=== PATIENT | female | born 1960 | race Caucasian/White ===

== ENCOUNTER → 2019-02-19 10:40 | Outpatient (BNVA) | payer BC, SELFPAY | PROVIDERS: Family Provider Nurse Practitioner; PCP Nurse Practitioner; Visit Provider Orthopaedic Surgery | DX: M17.12 Unilateral primary osteoarthritis, left knee (principal) | CPT/HCPCS: 73560; 73565 ==

== ENCOUNTER → 2019-03-27 09:53 | Outpatient (BNVA) | payer BC, SELFPAY | PROVIDERS: Family Provider Nurse Practitioner; PCP Nurse Practitioner; Visit Provider Nurse Practitioner | DX: M25.551 Pain in right hip (principal); M79.89 Other specified soft tissue disorders | CPT/HCPCS: 73502 ==

== ENCOUNTER 2019-05-07 10:37 | Outpatient (CLI) | payer BC, SELFPAY ==
--- NOTE | 2019-05-07 10:55 | MR_ITS ---
WS: [id number] MRI RIGHT HIP NONCONTRAST TECHNIQUE: Axial T1, axial T2 fat sat, coronal T1, coronal STIR, sagittal T2 fat sat, sagittal T1, an d sagittal T2 fat sat, of both hips. CLINICAL INFORMATION: Right hip pain x-ray recommendation COMPARISON: March 27, 2019 FINDINGS: Mild degenerative arthritis both hips with joint space narrowing. No acute fractures. Right femoral n dee is normal in appearance. Degenerative changes along the greater trochanter. No acute fractures. S mall amount of edema along the right greater trochanter can be seen with trochanteric bursitis. Normal bone marrow signal in the proximal femurs. No evidence of avascular necrosis. Normal acetabulu m. Normal pubic rami. No inguinal or pelvic lymphadenopathy. MR/MR hip RT wo con* [id number] IMPRESSION: 1. Mild degenerative arthritis right hip. No acute fractures. 2. Small amount of edema along the right greater trochanter can be seen with t rochanteric bursitis. No acute fractures. 3. Mild degenerative arthritis left hip. 4. Normal bone marrow signal in the visualized bony pelvis and sacrum.
== END 2019-05-07 10:38 | disposition home or self-care (01) ==
LOC: RADWPI 10:48
PROVIDERS: Family Provider Nurse Practitioner; PCP Nurse Practitioner; Visit Provider Nurse Practitioner
DX: M25.551 Pain in right hip (principal); M16.0 Bilateral primary osteoarthritis of hip
CPT/HCPCS: 73721

== ENCOUNTER → 2019-07-25 13:18 | Outpatient (BNVA) | payer BC, SELFPAY | PROVIDERS: Family Provider Nurse Practitioner; PCP Nurse Practitioner; Visit Provider Nurse Practitioner | DX: F41.9 Anxiety disorder, unspecified (principal); Z12.4 Encounter for screening for malignant neoplasm of cervix | CPT/HCPCS: 88175 ==

== ENCOUNTER 2019-08-20 06:00 | Outpatient (RCR) | payer BC, SELFPAY | END 2019-09-06 23:59 | disposition home or self-care (01) | LOC: SPT 06:00 | PROVIDERS: PCP Nurse Practitioner; Referring Provider Orthopaedic Surgery; Visit Provider Orthopaedic Surgery | DX: M17.12 Unilateral primary osteoarthritis, left knee (principal); M25.562 Pain in left knee; G89.29 Other chronic pain | CPT/HCPCS: 97110; 97116; 97163 ==

== ENCOUNTER 2019-08-21 21:02 | Emergency (ER) | payer BC, SELFPAY ==
[2019-08-21 21:12] VITALS: BP 135/78; PULSE 71; RESP 17; TEMP 36.9; O2SAT 98; BMI 37.3
--- NOTE | 2019-08-21 21:44 | XRR_ITS ---
PROCEDURE INFORMATION: Exam: XR Abdomen, 3 or More Views Exam date and time: 08/21/2019 10:14 PM Age: 58 years old Clinical indication: Prior surgery; Surgery date: 6+ months; Surgery type: Hysterectomy; Patient HX: C/O constipation. Had total knee replacement 08/12/19. C/O bilat lower quadrant abd pain. No bowel movement in 8 days. Nausea TECHNIQUE: Imaging protocol: XR of the abdomen. Views: 3 or more views. COMPARISON: No relevant prior studies available. FINDINGS: Gastrointestinal tract: bowel gas pattern is nonspecific. Air filled large bowel including distal rectal gas. Moderate amount stool throughout the large bowel. Intraperitoneal space: Normal. No free air. Organs: Question prominent liver. Bones/joints: Unremarkable for age. XR/XR acute abdomen series [id number] IMPRESSION: 1. Bowel gas pattern is nonspecific. Air filled large bowel including distal rectal gas. 2. Moderate amount stool throughout the large bowel. 3. Question prominent liver.
[2019-08-21 21:59] VITALS: BP 148/54; PULSE 63; RESP 14; O2SAT 96
--- NOTE | 2019-08-21 22:14 | ED_ITS ---
HPI - General Adult General: Chief complaint: General Medical Stated complaint: constipated Time Seen by Provider: 08/21/19 22:00 History of Present Illness: HPI narrative: Patient is a 58-year-old female comes to the ED with constipation. Patient recently had a left total knee replacement surgery performed last Monday. She states that she is having left and right lower quadrant abdominal pain and has not had a bowel movement in 8 days. patient is currently taking pain narcotic for post surgical pain. She did say yesterday she strained and was able to have a very small formed stool. Today she started developing some nausea but is not vomited. Denies any fever, chills, dysuria or hematuria or blood in the stool. Patient has been taking MiraLAX, stool softener and mag citrate with no successful bowel movement. She currently rates the abdominal pain an 8 out of 10. Associated symptoms: Reports nausea; Deny chest pain, dyspnea, headache(s), rash, palpitations or vomiting Review of Systems Const: Denies: fever(s), chills or fatigue Eyes: Denies: change in vision or eye discomfort ENMT: Denies: throat pain, odynophagia, nasal discharge or nasal congestion Card: Denies: chest pain, palpitations, edema, swelling of feet/ankles, dyspnea on exertion or orthopnea Resp: Denies: dyspnea, productive cough or non-productive cough GI: Reports: abdominal pain, nausea and constipation; Denies: vomiting, diarrhea or hematochezia : Denies: flank pain, dysuria or hematuria Musc: Denies: neck pain, back pain or extremity swelling Skin/Breast: Denies: rash or new lesions Neuro: Denies: headache(s), numbness in extremities or weakness in extremities PFSH ED PFSH: Medical History Anxiety Essential (primary) hypertension Surgical History History of hysterectomy with BSO History of umbilical hernia repair Family History Brother Cancer Lung Father Family history of premature coronary artery disease Mother Dementia Social History Smoking and tobacco status: never smoked Second hand smoke exposure: No Smoking risk assessment/counseling performed?: No Alcohol intake: never Desire information about alcohol rehabilitation?: No Counseling given: No Desire information about substance/drug rehabilitation?: No Counseling given: No Adopted: No Caregiver/support person: No Lives independently: Yes Household members: spouse Housing: House Marital status: service: No Current occupational status: employed Current occupation: house Previous occupational history: house cleaning Pets and animals: Yes Pets & animals: dog(s) History of recent travel: No Current gender identity: Female Physical Exam Const: COMMON NORMALS: no acute distress, patient oriented x3 and alert GENERAL APPEARANCE: cooperative; not comfortable (Patient appears uncomfortable due to abdominal pain.) HENMT: COMMON NORMALS: normocephalic HEAD & SCALP: normocephalic MOUTH: Normal oral and palatal mucosa present THROAT: posterior oropharynx normal and uvula midline Eye: COMMON NORMALS: Equal, round and reactive pupils present PUPIL: Yes Equal, round and reactive pupils present Neck/C-Spine: COMMON NORMALS: supple GENERAL: Yes normal visual inspection Resp: COMMON NORMALS: normal respiratory effort, No retractions, No use of accessory muscles and clear to auscultation bilaterally AUSCULTATION: clear to auscultation bilaterally Cardio: COMMON NORMALS: regular rate, regular rhythm, S1 normal heart sound present, S2 normal heart sound present, No gallops present (Cardio), No clicks present (Cardio), No murmurs present (Cardio) and Peripheral pulses 2+ throughout RATE: regular rate RHYTHM: regular rhythm HEART SOUNDS: S1 normal heart sound present and S2 normal heart sound present PERIPHERAL PULSES: Peripheral pulses 2+ throughout GI: COMMON NORMALS: Normal to inspection, nondistended, normoactive bowel sounds present, Soft to palpation and no masses PALPATION: Yes Soft to palpation and Yes Tenderness to palpation present (GI) (moderate tenderness) Details: LLQ and RLQ : COMMON NORMALS: Yes no CVA tenderness BLADDER/KIDNEY EXAM: Yes no CVA tenderness Back/Pelvis: COMMON NORMALS: no CVA tenderness Extremity: COMMON NORMALS: normal to inspection and no pedal edema NARRATIVE EXTREMITY EXAM: No signs of purulent drainage, erythema, warmth or tenderness around left knee surgical site. Neuro: COMMON NORMALS: patient oriented x3 and moves all extremities SENSORIUM/ORIENTATION: Yes alert Skin: COMMON NORMALS: no rashes or lesions noted GENERAL SKIN EXAM: no rashes or lesions noted and dry skin Course Vital Signs: Vital signs: Vital Signs Temperature 98.4 F 08/21/19 21:12 Pulse Rate 63 08/21/19 21:59 Respiratory Rate 18 08/21/19 23:43 Blood Pressure 148/54 08/21/19 21:59 Pulse Oximetry 98 08/21/19 23:43 MDM - General Adult MDM Narrative: Medical decision making narrative: Patient is a 58-year-old female who comes to the ED with constipation. Patient has not had a bowel movement in 8 days and had left knee replacement surgery over a week ago. She is currently on pain narcotic and has been taking MiraLAX, stool softeners and mag citrate with no success full bowel movement as a result. Patient's abdomen is tenderness upon palpation in the left and right lower quadrants. White blood cell count 12 and CMP, lipase, UA was unremarkable. CT of the abdomen showed large amounts of liquid stool in the bowels. No obstruction seen. Patient was given a Fleet enema here in the ED and had a successful bowel movement and is feeling better. Patient was discharged and told to follow-up with PCP in 7 to 10 days for reevaluation. Return to ED if symptoms worsen. Patient understood agree with plan. Lab Data: Attestation: I reviewed the patient's lab results. Labs: Lab Results 08/21/19 08/21/19 08/21/19 Range/Units 21:50 22:17 22:17 WBC 12.0 H (4.0-10.0) 10^3/ uL RBC 4.28 (4.1-5.3) 10^6/u L Hgb 12.1 (11.5-15.3) g/dL Hct 37.9 (37.0-47.0) % MCV 88.6 (81-99) fL MCH 28.3 (28.0-34.0) pg MCHC 31.9 (30.0-36.0) g/dL RDW 12.1 (12.1-15.1) % Plt Count 386 (130-400) 10^3/c mm MPV 9.8 (7.4-10.4) fL Neut % (Auto) 81.4 % Lymph % (Auto) 9.9 % Bland % (Auto) 5.2 % Eos % (Auto) 2.8 % Baso % (Auto) 0.3 % Neut # (Auto) 9.76 H (1.8-7.7) 10^3/u L Lymph # (Auto) 1.2 (0.8-4.8) 10^3/u L Bland # (Auto) 0.6 (0.2-0.9) 10^3/u L Eos # (Auto) 0.3 (0.0-0.8) 10^3/u L Baso # (Auto) 0.0 (0.0-0.1) 10^3/u L Nucleated RBC % (a uto) 0 % Nucleated RBCs # 0.0 /100WBC Sodium 134 L (136-145) mmol/L Potassium 3.9 (3.5-5.1) mmol/L Chloride 97 L (98-107) mmol/L Carbon Dioxide 27 (22-29) mmol/L Anion Gap 13.9 (5-19) BUN 12 (8-23) mg/dL Creatinine 0.9 (0.5-0.9) mg/dL GFR Calculation 63.9 L (90-130) mL/min Glucose 143 H (65-115) mg/dL Calculated Osmolal ity 277 L (285-295) mOsm/k g Calcium 8.9 (8.5-10.5) mg/dL Total Bilirubin 0.7 (0.15-1.2) mg/dL AST 14 (0-32) U/L ALT 11 (0-33) U/L Alkaline Phosphata se 64 (35-105) IU/L Total Protein 6.5 L (6.6-8.7) g/dL Albumin 3.8 (3.5-5.2) g/dL Globulin 2.7 (1.3-4.6) g/dL Urine Color Yellow (Yellow) Urine Appearance Sl hazy (CLEAR) Urine pH 9 H (5-7) Ur Specific Gravit y 1.020 (1.005-1.030) Urine Protein Neg (Negative) Urine Glucose (UA) Norm (Normal) Urine Ketones Negative (Negative) Urine Blood Neg (Negative) Urine Nitrate Negative (Negative) Urine Bilirubin Neg (NEGATIVE) Prot Sulfosalicyli c Acd Negative (Negative) Urine Urobilinogen Norm (Negative) mg/dL Ur Leukocyte Jacquelin ase Negative (Negative) Urine RBC 0-4 H (0-2) /hpf Urine WBC 0-4 H (0-5) /hpf Ur Squamous Epith Cells 0-4 H (0-5) Urine Bacteria 1+ H (NONE) Urine Mucus 2+ Imaging Data^: KUB: Attestation: I personally reviewed and interpreted this imaging study as follows: My impression: Appears to have some dilated small bowels. Pending final radiology report. CT Abd/Pel: Attestation: I personally reviewed and interpreted this imaging study as follows: Radiologist's impression: [address] [address] [address] Scan Report Signed Patient: Justine Hauser Unit #: [id number] : 1960 Age/Sex: 58 / F ADM Date: 08/21/19 Loc: ER Room/Bed: Attending Dr: Ordering Provider/Ordering MD: Ceferino Baird Date of Service: 08/21/19 Procedure(s): CT abdomen pelvis w con* [id number] Accession Number(s): [id number] Report Number: [id number] PROCEDURE INFORMATION: Exam: CT Abdomen And Pelvis With Contrast Exam date and time: 08/21/2019 11:21 PM Age: 58 years old Clinical indication: Abdominal pain; Generalized; Prior surgery; Surgery date: 6+ months; Surgery type: Hernia repair, hysteectomy; Additional info: Constipation, llq pain TECHNIQUE: Imaging protocol: Computed tomography of the abdomen and pelvis with intravenous contrast. Radiation optimization: All CT scans at this facility use at least one of these dose optimization techniques: automated exposure control; mA and/or kV adjustment per patient size (includes targeted exams where dose is matched to clinical indication); or iterative reconstruction. Contrast material: OMNI 300; Contrast volume: 95 ml; Contrast route: INTRAVENOUS (IV); COMPARISON: CR XR hip RT 2-3V wo/w pel* [id number] 03/27/2019 9:53 AM RADIATION DOSE METRICS: Total DLP (mGy-cm): 1515.37 FINDINGS: Liver: Normal. No mass. Gallbladder and bile ducts: No calcified stones. No pericholecystic inflammatory changes. No ductal dilation. Pancreas: Normal. No ductal dilation. Spleen: No splenomegaly. Adrenals: Normal. No mass. Kidneys and ureters: Normal. No hydronephrosis. Stomach and bowel: Large amount of liquid stool throughout the colon. Appendix: Normal appendix. Intraperitoneal space: Trace pericolonic fluid. Vasculature: No abdominal aortic aneurysm. Lymph nodes: No enlarged lymph nodes. Bladder: Unremarkable as visualized. Reproductive: Unremarkable as visualized. Bones/joints: Bilateral L5 spondylolysis with grade 2 anterolisthesis of L5 on S1. Soft tissues: Unremarkable. CT/CT abdomen pelvis w con* [id number] IMPRESSION: 1. Large amount of liquid stool throughout the colon. 2. Trace pericolonic fluid. Radiation Dose CTDIVOL = (mGy): DLP = 1515.37 (mGy-cm) Dictated By: Ayush Zuniga MD Signed By: Ayush Zuniga MD Signed Date/Time: 08/22/1924 DD/ Discharge Plan Discharge Patient Disposition: Home, Self-Care Clinical Impression: Constipation due to pain medication Condition: Stable Prescriptions: No Action nitroglycerin 0.4 mg tablet, sublingual 0.4 mg SUBLINGUAL ONCE RF: 0 hydroxyzine pamoate 50 mg capsule 50 mg PO TID PRN (Reason: anxiety) Qty: 90 RF: 5 furosemide [Lasix] 20 mg tablet 20 mg PO QAM Qty: 30 RF: 5 irbesartan [Avapro] 300 mg tablet 300 mg PO DAILY Qty: 30 RF: 5 sertraline [Zoloft] 100 mg tablet 100 mg PO DAILY Qty: 30 RF: 5 promethazine-DM 6.25-15 mg/5 mL syrup 5 - 10 ml PO Q6H PRN (Reason: cough) Qty: 240 RF: 0 Discharge Orders: Discharge Order (Routine); Ordered 08/22/19 Ordered By: Ceferino Baird Referrals: Nino Menendez, [facility] M[facility] DESIGNER-C [Primary Care Provider] - Discharge Diet: Regular Discharge Activity: Increase activity as tolerated Patient Instructions: Constipation - Adult Activity Restrictions/Additional Instructions: Follow-up with medical provider as directed in 7--10 days. Continue taking all home medications as previously prescribed. Return to the ER or your medical provider if condition worsens. Please read and understand discharge instructions. If any questions, please ask. Coding Level of Care Code ED Clay Preparation Supervisor for Chg Fwd Exam Comprehensive
[2019-08-21 22:23] LABS: Basophils % 0.3 %; Eosinophils # 0.3 10^3/uL (0.0-0.8); Eosinophils % 2.8 %; Hematocrit 37.9 % (37.0-47.0); Hemoglobin 12.1 g/dL (11.5-15.3); Lymphocytes # 1.2 10^3/uL (0.8-4.8); Lymphocytes % 9.9 %; Mean Corpuscular HGB Conc 31.9 g/dL (30.0-36.0); Mean Corpuscular Hemoglobin 28.3 pg (28.0-34.0); Mean Corpuscular Volume 88.6 fL (81-99); Mean Platelet Volume 9.8 fL (7.4-10.4); Monocytes # 0.6 10^3/uL (0.2-0.9); Monocytes % 5.2 %; Neutrophils # 9.76 10^3/uL (1.8-7.7); Neutrophils % 81.4 %; Nucleated Red Blood Cells % 0 %; Platelet Count 386 10^3/cmm (130-400); Red Blood Count 4.28 10^6/uL (4.1-5.3); Red Cell Distribution Width 12.1 % (12.1-15.1)
--- NOTE | 2019-08-21 22:37 | CTR_ITS ---
PROCEDURE INFORMATION: Exam: CT Abdomen And Pelvis With Contrast Exam date and time: 08/21/2019 11:21 PM Age: 58 years old Clinical indication: Abdominal pain; Generalized; Prior surgery; Surgery date: 6+ months; Surgery type: Hernia repair, hysteectomy; Additional info: Constipation, llq pain TECHNIQUE: Imaging protocol: Computed tomography of the abdomen and pelvis with intravenous contrast. Radiation optimization: All CT scans at this facility use at least one of these dose optimization techniques: automated exposure control; mA and/or kV adjustment per patient size (includes targeted exams where dose is matched to clinical indication); or iterative reconstruction. Contrast material: OMNI 300; Contrast volume: 95 ml; Contrast route: INTRAVENOUS (IV); COMPARISON: CR XR hip RT 2-3V wo/w pel* [id number] 03/27/2019 9:53 AM RADIATION DOSE METRICS: Total DLP (mGy-cm): 1515.37 FINDINGS: Liver: Normal. No mass. Gallbladder and bile ducts: No calcified stones. No pericholecystic inflammatory changes. No ductal dilation. Pancreas: Normal. No ductal dilation. Spleen: No splenomegaly. Adrenals: Normal. No mass. Kidneys and ureters: Normal. No hydronephrosis. Stomach and bowel: Large amount of liquid stool throughout the colon. Appendix: Normal appendix. Intraperitoneal space: Trace pericolonic fluid. Vasculature: No abdominal aortic aneurysm. Lymph nodes: No enlarged lymph nodes. Bladder: Unremarkable as visualized. Reproductive: Unremarkable as visualized. Bones/joints: Bilateral L5 spondylolysis with grade 2 anterolisthesis of L5 on S1. Soft tissues: Unremarkable. CT/CT abdomen pelvis w con* [id number] IMPRESSION: 1. Large amount of liquid stool throughout the colon. 2. Trace pericolonic fluid. Radiation Dose CTDIVOL = (mGy): DLP = 1515.37 (mGy-cm)
[2019-08-21] MEDS: sodium chloride 0.9% 500 ML IV (22:51)
[2019-08-21] MEDS: ondansetron 2 mg/ML SDV 2 mL 4 MG IVP (22:52)
[2019-08-21 22:56] VITALS: RESP 18; O2SAT 98
[2019-08-21] MEDS: morphine 4 mg/mL SDV 1 mL IVP ×2 (22:56→23:43)
[2019-08-21 23:06] LABS: Bacteria Urine 1+; Bilirubin Urine Neg (NEGATIVE); Blood Urine Neg (Negative); Glucose Urine UA Norm (Normal); Ketones Urine Negative (Negative); Leukocyte Esterase Urine Negative (Negative); Mucus Urine 2+; Nitrate Urine Negative (Negative); Protein Urine Neg (Negative); RBC Urine 0-4 /hpf (0-2); Squamous Epithelial Cell Urine 0-4 (0-5); Sulfosalicylic Acid Urine Negative (Negative); Urine Appearance SL Hazy (CLEAR); Urine Color Yellow (Yellow); Urobilinogen Urine Norm (Negative); WBC Urine 0-4 /hpf (0-5); pH Urine 9 (5-7)
[2019-08-21 23:10] LABS: Alanine Aminotransferase 11 U/L (0-33); Albumin Level 3.8 g/dL (3.5-5.2); Alkaline Phosphatase 64 IU/L (35-105); Anion Gap 13.9 (5-19); Aspartate Amino Transferase 14 U/L (0-32); Blood Urea Nitrogen 12 mg/dL (8-23); Calcium 8.9 mg/dL (8.5-10.5); Carbon Dioxide 27 mmol/L (22-29); Chloride 97 mmol/L (98-107); Globulin 2.7 g/dL (1.3-4.6); Glomerular Filtration Rate 63.9 mL/min (90-130); Glucose 143 mg/dL (65-115); Osmolality Calculated 277 mOsm/kg (285-295); Potassium 3.9 mmol/L (3.5-5.1); Sodium 134 mmol/L (136-145); Total Bilirubin 0.7 mg/dL (0.15-1.2); Total Protein 6.5 g/dL (6.6-8.7)
--- NOTE | 2019-08-21 23:14 | PC.NURSE ---
report given to carlo frias assumed care.
[2019-08-21] MEDS: iohexol 300 mg/mL 100 mL Btl IV (23:35)
[2019-08-21 23:43] VITALS: RESP 18; O2SAT 98
[2019-08-22] MEDS: Fleet Enema 133 mL Enema PR (01:17)
[2019-08-22 02:01] VITALS: BP 123/69; PULSE 94; RESP 16; TEMP 36.8; O2SAT 93
== END 2019-08-22 02:03 | disposition home or self-care (01) ==
PROVIDERS: Emergency Medicine; Emergency Provider Physician Assistant; PCP Nurse Practitioner
DX: K59.03 Drug induced constipation (principal); I10 Essential (primary) hypertension
CPT/HCPCS: 12345; 74022; 74177; 80053; 81001; 85025; 96361; 96374; 96375; 96376; 99282; 99283; J2270; J2405; J7040; Q9967

== ENCOUNTER 2019-09-07 06:00 | Outpatient (RCR) | payer BC, SELFPAY | END 2019-10-07 23:59 | disposition home or self-care (01) | LOC: SPT 06:00 | PROVIDERS: PCP Nurse Practitioner; Referring Provider Orthopaedic Surgery; Visit Provider Orthopaedic Surgery | DX: G89.29 Other chronic pain (principal); M17.12 Unilateral primary osteoarthritis, left knee | CPT/HCPCS: 97110; 97116 ==

== ENCOUNTER 2019-09-23 11:21 | Outpatient (CLI) | payer BC, SELFPAY ==
--- NOTE | 2019-09-23 11:00 | MM_ITS ---
WS: [id number] SCREENING DIGITAL MAMMOGRAM WITH CAD HISTORY: Screening COMPARISON: 06/19/2018 and 06/06/2017 Bilateral CC and MLO views submitted. Computer aided detection analyzed. Breast composition: There are scattered areas of fibroglandular density. No suspicious masses, microc alcifications or architectural distortion. MM/[place] [id number] IMPRESSION: BI-RADS: 1-Negative FOLLOW UP: 1 Year Follow-up
== END 2019-09-23 11:22 | disposition home or self-care (01) ==
LOC: RADSHAW 11:26
PROVIDERS: PCP Nurse Practitioner; Visit Provider Nurse Practitioner
DX: Z12.31 Encounter for screening mammogram for malignant neoplasm of breast (principal)
CPT/HCPCS: 77067

== ENCOUNTER 2019-10-08 06:00 | Outpatient (RCR) | payer BC, SELFPAY | END 2019-11-06 23:59 | disposition home or self-care (01) | LOC: SPT 06:00 | PROVIDERS: PCP Nurse Practitioner; Referring Provider Orthopaedic Surgery; Visit Provider Orthopaedic Surgery | DX: M17.12 Unilateral primary osteoarthritis, left knee (principal) | CPT/HCPCS: 97110; 97530 ==

== ENCOUNTER 2019-10-22 16:08 | Outpatient (CLI) | payer BC, SELFPAY ==
--- NOTE | 2019-10-22 16:23 | XR_ITS ---
WS: [id number] EXAM: XR lumbar spine 2-3V* [id number] DATE OF EXAMINATION: 10/22/2019, 1646 hour COMPARISON: Lumbar spine examination from 10/05/2015. HISTORY: 59 years old with low back pain. FINDINGS: Lower thoracic and lumbar vertebrae are of normal height. Multilevel degenerative spondylosis changes are again demonstrated in the lower thoracic spine. Slight degenerative spondylosis changes L1-2 lev el similar. Minimal degenerative changes L3-4 level. There is a grade 2 anterolisthesis of L5 on S1 a gain demonstrated. On a prior CT from 08/21/2019 there appears to be facet deformity at this level wit h partial pars defects and abnormal appearance to the remaining portion of the inferior facets. Facet arthropathy changes also prominent L3-4 and L4-5 levels. No acute fracture is seen. All pedicles are appreciated on the AP radiograph. Surgical clips are seen overlying the lower spine which correlates with umbilical hernia clip repair changes on prior CT. Calcification within the iliolumbar ligament demonstrated. Slight arthritis within the SI joints. No paraspinal soft tissue abnormality seen. XR/XR lumbar spine 2-3V* [id number] IMPRESSION: EXTENSIVE CHANGES OF ARTHRITIS DESCRIBED. NO ACUTE BONY ABNORMALITY. GRADE 2 ANTEROLISTHESIS OF L5 ON S1 SIMILAR.
--- NOTE | 2019-10-22 16:23 | XR_ITS ---
WS: [id number] EXAM: XR cervical spine 3V* [id number] DATE OF EXAMINATION: 10/22/2019, 1639 hours COMPARISON: Cervical spine examination from 08/11/2016 HISTORY: 59 years old with left-sided neck pain. FINDINGS: There is straightening of the cervical lordotic curve. Cervical vertebral bodies are of normal height . The pre dens space and prevertebral soft tissue plane are normal. Severe degenerative spondylosis c hanges C3-4, C4-5, C5-6 and C6-7 levels again seen. Posterior spurring C4-5, C5-6 and C6-7 levels sim ilar. Facet arthropathy changes are similar as well. C1-C2 alignment is normal. No fracture or sublux ation malalignment is noted. No soft tissue abnormality is demonstrated. XR/XR cervical spine 3V* [id number] IMPRESSION: Extensive changes of arthritis as described. Not extensively changed since 2017 . No acute bony abnormality.
== END 2019-10-22 16:09 | disposition home or self-care (01) ==
LOC: RAD 16:11
PROVIDERS: PCP Nurse Practitioner; Visit Provider Nurse Practitioner
DX: M54.5 Low back pain (principal); M54.2 Cervicalgia
CPT/HCPCS: 72040; 72100

== ENCOUNTER 2020-01-20 11:00 | Outpatient (RCR) | payer BC, SELFPAY | END 2020-02-06 23:59 | disposition home or self-care (01) | LOC: SPT 11:00 | PROVIDERS: PCP Nurse Practitioner; Referring Provider Orthopaedic Surgery; Visit Provider Orthopaedic Surgery | DX: Z47.1 Aftercare following joint replacement surgery (principal); Z96.652 Presence of left artificial knee joint | CPT/HCPCS: 97110; 97161 ==

== ENCOUNTER 2020-02-07 06:00 | Outpatient (RCR) | payer OTHER, SELFPAY | END 2020-03-08 23:59 | disposition home or self-care (01) | LOC: SPT 06:00 | PROVIDERS: PCP Nurse Practitioner; Referring Provider Orthopaedic Surgery; Visit Provider Orthopaedic Surgery | DX: Z47.1 Aftercare following joint replacement surgery (principal); Z96.652 Presence of left artificial knee joint | CPT/HCPCS: 97110; 97164 ==

== ENCOUNTER 2020-03-09 06:00 | Outpatient (RCR) | payer OTHER, SELFPAY | END 2020-04-05 23:59 | disposition home or self-care (01) | LOC: SPT 06:00 | PROVIDERS: PCP Nurse Practitioner; Referring Provider Orthopaedic Surgery; Visit Provider Orthopaedic Surgery | DX: Z47.1 Aftercare following joint replacement surgery (principal); Z96.652 Presence of left artificial knee joint | CPT/HCPCS: 97110; 97140 ==

== ENCOUNTER 2020-04-06 06:00 | Outpatient (RCR) | payer OTHER, SELFPAY | END 2020-05-06 23:59 | disposition home or self-care (01) | LOC: SPT 06:00 | PROVIDERS: PCP Nurse Practitioner; Referring Provider Orthopaedic Surgery; Visit Provider Orthopaedic Surgery | DX: Z47.1 Aftercare following joint replacement surgery (principal); Z96.652 Presence of left artificial knee joint | CPT/HCPCS: 97110 ==

== ENCOUNTER → 2020-06-24 10:17 | Outpatient (BNVA) | payer OTHER, SELFPAY | PROVIDERS: PCP Nurse Practitioner; Visit Provider Nurse Practitioner Family | DX: R53.83 Other fatigue (principal); I44.0 Atrioventricular block, first degree; I10 Essential (primary) hypertension; R00.1 Bradycardia, unspecified; Z91.89 Other specified personal risk factors, not elsewhere classified; W57.XXXA Bitten or stung by nonvenomous insect and other nonvenomous arthropods, initial encounter | CPT/HCPCS: 80053; 82306; 82607; 85025; 85651 ==

== ENCOUNTER 2020-08-19 06:58 | Outpatient (CLI) | payer OTHER, SELFPAY ==
--- NOTE | 2020-08-19 07:10 | ECG_ITS ---
[facility] Test Date: 2020-08-19 Pat Name: Justine Hauser Department: Room: Gender: Female Child Psychometrist: : 1960 Requested By: Lou Florence Order Number: [id number] Kodak MD: Lou Florence M.D. Interpretive Statements NAME OF STUDY: EXERCISE SESTAMIBI STRESS TEST INDICATION: Dyspnea Baseline blood pressure of 173/82 mm Hg, heart rate of 55 beats per minute and oxygen saturation of 97%. EKG showed sinus bradycardia, normal axis with normal ST-Ts. The patient exercised for 9 minutes 40 seconds on a modified Carlos Alberto protocol. Patient attained a maximum heart rate of 139 beats per minute(87% of the maximum predicted heart rate) with a blood pressure at the peak exercise of 243/103 mm Hg and oxygen saturation 86%. The EKG at the peak exercise revealed sinus tachycardia with no significant ST-T wave changes. Patient did not have any chest pain or any significant arrhythmis with the exercise During the recovery phase, there were no new changes. Blood pressure at the end of the recovery phase was 153/74 mm Hg with a heart rate of 77 beats per minute and oxygen saturation 97%. CONCLUSION: 1. Normal EKG response to treadmill exercise. 2. No exercise-induced chest pain or cardiac arrhythmia 3. Good exercise tolerance, attained a maximum of 10.2 METs. Maximum VO2 of 35.7 mL/kg/min. 4. Baseline hypertension with hypertensive response to exercise. 5. Perfusion scan will be documented separately. Electronically Signed On 08-21-2020 13:10:48 CDT by Lou Florence M.D. [id number]
--- NOTE | 2020-08-19 07:10 | NMCV_ITS ---
NM taina perf SPECT r/s* [id number] Justine Hauser Age: 59 Gender: F : 1960 Exam Date: 08/19/2020 08:16 Ordering Phys: Lou Florence MD ([email or web address]) Technologist: TETE Burgos Exam Location: [facility] Indications: DYSPNEA STRESS TEST Please see separate stress test report in [facility] for full findings IMAGE PROTOCOL Rest/Stress 1 Exercise Day Radiopharmaceutical Dose (mCi) Administration Site Administered by Rest: Tc-99m 10.8 IV TETE Chen Sestamibi Stress:Tc-99m 32.5 IV TETE Burgos Sestamidilia Rest: 19-Aug-2020 60 Discovery 630 Stress: 19-Aug-2020 30 Discovery 630 Radiopharmaceutical was injected at 85 % maximum heart rate. Images obtained in supine and prone position. SPECT RESULTS Technical Quality: Excellent Raw Data Analysis: Normal Image Corrections: No attenuation or motion correction applied Summed Stress Score: 0 Summed Rest Score: 2 Summed Difference Score: 0 PERFUSION FINDINGS Small sized perfusion abnormality of mild severity of apical inferior and apical lateral graff on rest with improved tracer uptake in stress images. This is suggestive of attenuation artifact. FUNCTIONAL RESULTS (calculated via Gated SPECT) Stress Image LV EF (%): 89 Stress EDV (mL):61 TID: 0.67 Stress ESV (mL):7 FUNCTIONAL FINDINGS: The left ventricle is normal in size. Transient Ischemia Dilatation of 0.67. There is hyperdynamic left ventricular global systolic function, LVEF=89%. There is normal left ventricular wall thickening with no regional wall motion abnormality. IMPRESSIONS 1. Myocardial perfusion imaging is normal. Attenuation artifact noted in apical inferior and apical lateral graff. 2. There is hyperdynamic left ventricular global systolic function, LVEF=89%. 3. There is normal left ventricular wall thickening with no regional wall motion abnormality. 4. EKG portion of the study will be reported separately. 5. Scan indicates low risk for cardiac events. Lou Florence MD (Electronically Signed) Final Date: 20 August 2020 21:43 S
[2020-08-19 07:15] VITALS: BMI 35.2
[2020-08-19 09:26] VITALS: BP 153/74; PULSE 76
== END 2020-08-19 06:59 | disposition home or self-care (01) ==
LOC: RAD 07:04 → CDL 07:17
PROVIDERS: PCP Nurse Practitioner; Visit Provider Internal Medicine Cardiovascular Disease
DX: R06.09 Other forms of dyspnea (principal)
CPT/HCPCS: 78452; 93017; A9500

== ENCOUNTER 2020-10-29 13:03 | Outpatient (CLI) | payer OTHER, SELFPAY ==
--- NOTE | 2020-10-29 13:16 | MM_ITS ---
WS: [id number] BILATERAL DIGITAL SCREENING MAMMOGRAPHY WITH CAD CLINICAL INFORMATION: SCREENING HISTORY: Screening mammogram. No current complaints. COMPARISON: September 23, 2019 TECHNIQUE: Bilateral CC and MLO views. FINDINGS: Scattered fibroglandular densities bilaterally. No suspicious focal mass, asymmetry, calcifications, or architectural distortion. No evidence of malignancy. MM/[place] [id number] IMPRESSION: BI-RADS: 1-Negative FOLLOW UP: 1 Year Follow-up Recommend return to annual screening mammography.
== END 2020-10-29 13:04 | disposition home or self-care (01) ==
LOC: RADSHAW 13:11
PROVIDERS: PCP Nurse Practitioner; Visit Provider Nurse Practitioner
DX: Z12.31 Encounter for screening mammogram for malignant neoplasm of breast (principal)
CPT/HCPCS: 77067

== ENCOUNTER → 2020-11-17 14:32 | Outpatient (BNVA) | payer OTHER, SELFPAY | PROVIDERS: PCP Nurse Practitioner; Referring Provider Nurse Practitioner; Visit Provider Specialist | DX: G56.01 Carpal tunnel syndrome, right upper limb (principal); R20.2 Paresthesia of skin | CPT/HCPCS: 95908 ==

== ENCOUNTER → 2020-12-21 09:14 | Outpatient (BNVA) | payer OTHER, SELFPAY | PROVIDERS: PCP Orthopaedic Surgery; Visit Provider Orthopaedic Surgery | DX: Z01.812 Encounter for preprocedural laboratory examination (principal); Z20.822 Contact with and (suspected) exposure to COVID-19; G56.01 Carpal tunnel syndrome, right upper limb | CPT/HCPCS: 87635 ==

== ENCOUNTER 2020-12-24 07:21 | Day surgery (SDC) | payer OTHER, SELFPAY ==
[2020-12-23 10:40] VITALS: BMI 35.2
[2020-12-24 07:31] VITALS: BP 141/74; PULSE 52; RESP 17; TEMP 36.6; O2SAT 98
--- NOTE | 2020-12-24 08:14 | P.ANESASSM_ITS ---
Pre-Anesthetic Assessment Pre-Anesthetic Assessment: Height/Weight: Height 1.52 m Weight 81.647 kg Temp Pulse Resp BP Pulse Ox 97.9 F 52 L 17 141/74 98 12/24/20 07:31 12/24/20 07:31 12/24/20 07:31 12/24/20 07:31 12/24/20 07:31 Preop Diagnosis: Carpal tunnel syndrome Right Proposed Procedure: Operation Date: 12/24/20 08:50 Proposed Procedures p Carpal Tunnel Release [id number] G56.01(Right) - Rosalino Villa MD Was Beta Hugo taken within 24 hours: N/A Was Clonidine taken within 24 hours: N/A Last intake: Intake Last Liquid Date 12/23/20 Last Liquid Time 21:00 Last Solid Date 12/23/20 Last Solid Time 21:00 Social: Social History: No alcohol and No tobacco Exam: Pre-Anes Outpt Exam: alert, oriented x 3, clear to auscultation bilaterally and regular rate & rhythm Airway: Submandibular: WNL Cervical ROM: WNL MP: 2 Dentition: False CV/HEM: CV/HEM: Arrythmia (1deg AV blk) and HTN Metabolic: Metabolic: Morbid obesity Neuropsych: Neuropsych: Anxiety and Depression Anesthetic Plan: ASA status: 3 Anesthesia: MAC and Regional (specify below) ([place] blk) Risk of > 500 ml blood loss (7ml/kg in children): No PFSH Anesthesia PFSH: Medical History (Updated 11/20/20 @ 13:22 by Delfina Hooper MD) Anxiety Essential (primary) hypertension First degree AV block Surgical History (Updated 12/11/20 @ 09:59 by NOLAN Rodrigez) History of hysterectomy with BSO History of left knee replacement August 2019 History of umbilical hernia repair Family History Brother Cancer Lung Father Family history of premature coronary artery disease Mother Dementia Other CAD (coronary artery disease) Stroke Social History Second hand smoke exposure: No Smoking risk assessment/counseling performed?: No Alcohol intake: never Desire information about alcohol rehabilitation?: No Counseling given: No Desire information about substance/drug rehabilitation?: No Counseling given: No Adopted: No Caregiver/support person: No Lives independently: Yes Household members: spouse Housing: House Marital status: service: No Current occupational status: employed Current occupation: house Previous occupational history: house cleaning Pets and animals: Yes Pets & animals: dog(s) History of recent travel: No Current gender identity: Female Data Anesthesia Cardiac Studies: No Data to Display
[2020-12-24] MEDS: sodium chloride 0.9% 1,000 ML 30 ML IV (08:15)
--- NOTE | 2020-12-24 08:30 | W.PM.OPSUD ---
Surgery/Procedure H&P Update DATE OF PROCEDURE: December 24, 2020 DATE H&P PERFORMED: 12/09/20 H&P UPDATE INFORMATION: I have reviewed H&P completed within last 30 days PREOP DIAGNOSIS: Carpal tunnel syndrome Right PLANNED PROCEDURE: Operation Date: 12/24/20 08:50 Proposed Procedures p Carpal Tunnel Release [id number] G56.01(Right) - Rosalino Villa MD
--- NOTE | 2020-12-24 09:16 | PM.OP ---
Operative Report Date of procedure: December 24, 2020 Pre-op Diagnosis: Carpal tunnel syndrome Right Procedure: Date of procedure: December 24, 2020 Pre-op Diagnosis: Carpal tunnel syndrome right wrist Post-op diagnosis: same Post-op Findings: Same Procedure Done: Right carpal tunnel Pathology: none sent Surgeon: Rosalino Villa Anesthesia: Nerve Block ([place] block) Tourniquet time (min): 20 Complications: None Condition: stable Disposition: PACU Procedure: Patient was taken to the operating room and anesthesia provided by the anesthesia service. She was prepped and draped with the arm exposed. A timeout was performed. A 3 cm long incision was made in line with the fourth ray from the distal edge of the carpal tunnel extending proximally. The subcutaneous fat and palmar fascia was divided with a scalpel blade. Under loupe magnification the ulnar neurovascular bundle was identified distally. A hemostat could be passed under the transverse carpal ligament allowing the distal 25% to be divided. A slotted guide was then passed beneath the transverse carpal ligament and the middle 50% divided. Blunt scissors were then passed over the guide freeing the proximal ligament. The tourniquet was deflated. Hemostasis provided with electrocautery. Wound edges were infiltrated with 10 cc of a half percent Marcaine solution. Skin edges were reapproximated with 3-0 Prolene. Sterile dressings were applied. The patient was taken to the recovery room in stable condition
[2020-12-24 10:02] VITALS: BP 127/62; PULSE 50; RESP 16; TEMP 36.7; O2SAT 98
[2020-12-24 10:05] VITALS: BP 136/62; PULSE 49; RESP 16; O2SAT 99
[2020-12-24 10:10] VITALS: BP 139/64; PULSE 50; RESP 17; TEMP 36.2; O2SAT 98
[2020-12-24 10:22] VITALS: BP 144/56; PULSE 49; RESP 16; TEMP 36.4; O2SAT 98
[2020-12-24 10:33] VITALS: BP 135/93; PULSE 50; RESP 16; O2SAT 97
[2020-12-24] MEDS: HYDROcodone-acetaminophen 5-325 mg Tablet 1 TAB PO (10:57)
--- NOTE | 2020-12-24 13:40 | ANE.PACU2 ---
Inpatient post-anesthesia follow up: Airway intact: Yes Vital signs: Temperature 97.5 F Pulse Rate 50 Respiratory Rate 16 Blood Pressure 135/93 Pulse Oximetry 97 Oxygen Delivery Me thod Room Air Oxygen Flow Rate 5 Fraction of Inspir ed Oxygen Hydration adequate: Yes Nausea and vomiting: No Pain level: 2 Mental status: Baseline
== END 2020-12-24 11:00 | disposition home or self-care (01) ==
PROVIDERS: PCP Orthopaedic Surgery; Visit Provider Orthopaedic Surgery
PROC: (CPT 64721; principal; 2020-12-24 08:50)
DX: R20.2 Paresthesia of skin (principal); I11.0 Hypertensive heart disease with heart failure; I44.0 Atrioventricular block, first degree; Z82.49 Family history of ischemic heart disease and other diseases of the circulatory system
CPT/HCPCS: 64721; J0690; J2250; J3010; J3490; J7030

== ENCOUNTER → 2021-01-11 15:14 | Outpatient (BNVA) | payer OTHER, SELFPAY | PROVIDERS: PCP Orthopaedic Surgery; Visit Provider Nurse Practitioner | DX: I10 Essential (primary) hypertension (principal) | CPT/HCPCS: 80053; 80061 ==

== ENCOUNTER → 2021-04-13 10:48 | Outpatient (BNVA) | payer OTHER, SELFPAY | PROVIDERS: PCP Orthopaedic Surgery; Visit Provider Nurse Practitioner | DX: I10 Essential (primary) hypertension (principal); E78.2 Mixed hyperlipidemia; E55.9 Vitamin D deficiency, unspecified; F41.9 Anxiety disorder, unspecified; M54.2 Cervicalgia | CPT/HCPCS: 80053; 80061; 82306; 84443; 85025; 85651; 86140 ==

== ENCOUNTER → 2021-05-31 16:14 | Outpatient (BNVA) | payer OTHER, SELFPAY | PROVIDERS: PCP Orthopaedic Surgery; Visit Provider Nurse Practitioner | DX: E55.9 Vitamin D deficiency, unspecified (principal); I10 Essential (primary) hypertension; F41.9 Anxiety disorder, unspecified; S30.860A Insect bite (nonvenomous) of lower back and pelvis, initial encounter; W57.XXXA Bitten or stung by nonvenomous insect and other nonvenomous arthropods, initial encounter | CPT/HCPCS: 80048; 82306; 85025 ==

== ENCOUNTER 2021-10-01 12:39 | Outpatient (CLI) | payer OTHER, SELFPAY ==
--- NOTE | 2021-10-01 12:52 | XR_ITS ---
WS: [id number] Chest with right rib detail, 3 views, 10/01/2021 Clinical Data: R07.81 - Pleurodynia Comparison: PA and lateral chest, 01/31/2017. Findings: The lungs show no nodules, masses, or effusions. The heart is normal. No pneumonia or pneumothorax is seen. The ribs are intact. No rib fractures seen. No subcutaneous emphysema is present. XR/XR ribs RT mn 3V w CXR1V [id number] Impression: Negative chest with right rib detail.
== END 2021-10-01 12:40 | disposition home or self-care (01) ==
LOC: RAD 12:47
PROVIDERS: PCP Nurse Practitioner; Visit Provider Nurse Practitioner Family
DX: R07.81 Pleurodynia (principal)
CPT/HCPCS: 71101

== ENCOUNTER → 2021-10-21 14:00 | Outpatient (BNVA) | payer OTHER, SELFPAY | PROVIDERS: PCP Nurse Practitioner; Visit Provider Nurse Practitioner | DX: I10 Essential (primary) hypertension (principal); F41.9 Anxiety disorder, unspecified; E78.2 Mixed hyperlipidemia; Z12.31 Encounter for screening mammogram for malignant neoplasm of breast | CPT/HCPCS: 80053; 80061 ==

== ENCOUNTER 2021-10-22 | Outpatient (RCR) | payer OTHER, SELFPAY | END 2021-11-05 23:59 | disposition home or self-care (01) | LOC: APT | PROVIDERS: PCP Nurse Practitioner; Visit Provider Nurse Practitioner Family | DX: Z96.652 Presence of left artificial knee joint (principal); M25.562 Pain in left knee; G89.29 Other chronic pain; M23.8X2 Other internal derangements of left knee | CPT/HCPCS: 97110; 97140; 97163 ==

== ENCOUNTER 2021-11-05 11:23 | Outpatient (CLI) | payer OTHER, SELFPAY ==
--- NOTE | 2021-11-05 11:35 | MM_ITS ---
WS: [id number] VIEWS: MLO and CC views both breasts. 3D digital tomosynthesis is also included in this exam. Comparison made with prior exam of 04/08/2015, 04/29/2016, 06/06/2017, 09/23/2019. 10/29/2020.. Findings: There was no sign of mass, architectural distortion or suspicious calcification in either breast. Fa tty MM/[place] [id number] Impression: BI-RADS: 1-Negative FOLLOW-UP: 1 Year Follow-up This mammogram was also analyzed by the Computer Aided Detection System [employer].
== END 2021-11-05 11:24 | disposition home or self-care (01) ==
LOC: RAD 11:24
PROVIDERS: PCP Nurse Practitioner; Visit Provider Nurse Practitioner
DX: Z12.31 Encounter for screening mammogram for malignant neoplasm of breast (principal)
CPT/HCPCS: 77063; 77067

== ENCOUNTER 2021-11-06 06:00 | Outpatient (RCR) | payer OTHER, SELFPAY | END 2021-12-06 23:59 | disposition home or self-care (01) | LOC: APT 06:00 | PROVIDERS: PCP Nurse Practitioner; Visit Provider Nurse Practitioner Family | DX: Z96.652 Presence of left artificial knee joint (principal); M25.562 Pain in left knee; G89.29 Other chronic pain; M23.8X2 Other internal derangements of left knee | CPT/HCPCS: 97110; 97112; 97140 ==

== ENCOUNTER 2021-12-07 06:00 | Outpatient (RCR) | payer OTHER, SELFPAY | END 2022-01-05 23:59 | disposition home or self-care (01) | LOC: APT 06:00 | PROVIDERS: PCP Nurse Practitioner; Visit Provider Nurse Practitioner Family | DX: M25.562 Pain in left knee (principal); G89.29 Other chronic pain; M23.8X2 Other internal derangements of left knee; Z96.652 Presence of left artificial knee joint | CPT/HCPCS: 97110; 97140 ==

== ENCOUNTER → 2022-03-24 15:44 | Outpatient (BNVA) | payer OTHER, SELFPAY | PROVIDERS: PCP Nurse Practitioner; Visit Provider Nurse Practitioner Family | DX: R07.9 Chest pain, unspecified (principal); I10 Essential (primary) hypertension | CPT/HCPCS: 80053; 84443; 84484; 85025 ==

== ENCOUNTER → 2022-05-11 10:24 | Outpatient (BNVA) | payer OTHER, SELFPAY | PROVIDERS: PCP Nurse Practitioner; Visit Provider Nurse Practitioner | DX: M25.512 Pain in left shoulder (principal); E78.2 Mixed hyperlipidemia; M54.2 Cervicalgia; M79.673 Pain in unspecified foot; G89.29 Other chronic pain | CPT/HCPCS: 72040; 73030; 73630; 83735 ==

== ENCOUNTER → 2022-07-25 16:08 | Outpatient (BNVA) | payer OTHER, SELFPAY | PROVIDERS: PCP Nurse Practitioner; Visit Provider Nurse Practitioner Family | DX: R00.0 Tachycardia, unspecified (principal); R55 Syncope and collapse | CPT/HCPCS: 80053; 84484; 85007; 85025 ==

== ENCOUNTER → 2022-10-19 14:48 | Outpatient (BNVA) | payer OTHER, SELFPAY | PROVIDERS: PCP Nurse Practitioner; Visit Provider Nurse Practitioner | DX: I10 Essential (primary) hypertension (principal); F41.9 Anxiety disorder, unspecified; M54.2 Cervicalgia; E88.81 Metabolic syndrome and other insulin resistance; M54.50 Low back pain, unspecified; M79.605 Pain in left leg | CPT/HCPCS: 80053; 80061; 84443 ==

== ENCOUNTER 2022-11-07 06:00 | Outpatient (RCR) | payer OTHER, SELFPAY | END 2022-12-06 23:59 | disposition home or self-care (01) | LOC: APT 06:00 | PROVIDERS: Visit Provider Nurse Practitioner | DX: M54.50 Low back pain, unspecified (principal); M79.605 Pain in left leg | CPT/HCPCS: 97110; 97112; 97161; 97530 ==

== ENCOUNTER 2022-11-11 11:32 | Outpatient (CLI) | payer OTHER, SELFPAY ==
--- NOTE | 2022-11-11 11:38 | MM_ITS ---
WS: [id number] BILATERAL 3D TOMOSYNTHESIS DIGITAL SCREENING MAMMOGRAPHY WITH CAD CLINICAL INFORMATION: SCREENING HISTORY: Screening mammogram. No current complaints. COMPARISON: 2021 TECHNIQUE: Bilateral CC and MLO views. FINDINGS: Scattered fibroglandular densities bilaterally. No suspicious focal mass, asymmetry, calcifications, or architectural distortion. No evidence of malignancy. IMPRESSION: MM/[place] [id number] BI-RADS: 1-Negative FOLLOW UP: 1 Year Follow-up Recommend return to annual screening mammography.
== END 2022-11-11 11:33 | disposition home or self-care (01) ==
LOC: MOBLMAM 11:37
PROVIDERS: Visit Provider Nurse Practitioner
DX: Z12.31 Encounter for screening mammogram for malignant neoplasm of breast (principal)
CPT/HCPCS: 77063; 77067

== ENCOUNTER 2022-12-07 06:00 | Outpatient (RCR) | payer OTHER, SELFPAY | END 2023-01-05 23:59 | disposition home or self-care (01) | LOC: APT 06:00 | PROVIDERS: Visit Provider Nurse Practitioner | DX: M54.50 Low back pain, unspecified (principal); M79.605 Pain in left leg | CPT/HCPCS: 97110; 97112; 97140; 97530 ==

== ENCOUNTER → 2023-03-23 13:33 | Outpatient (BNVA) | payer OTHER, SELFPAY | PROVIDERS: PCP Nurse Practitioner; Visit Provider Nurse Practitioner | DX: I10 Essential (primary) hypertension (principal) | CPT/HCPCS: 80053; 80061 ==

== ENCOUNTER → 2023-08-16 08:54 | Outpatient (BNVA) | payer OTHER, SELFPAY | PROVIDERS: PCP Nurse Practitioner; Visit Provider Nurse Practitioner | DX: I10 Essential (primary) hypertension (principal); E55.9 Vitamin D deficiency, unspecified; E78.2 Mixed hyperlipidemia | CPT/HCPCS: 80053; 80061; 82306; 84443 ==

== ENCOUNTER → 2023-11-02 08:45 | Outpatient (BNVA) | payer OTHER, SELFPAY | PROVIDERS: PCP Nurse Practitioner; Visit Provider Nurse Practitioner | DX: I10 Essential (primary) hypertension (principal) | CPT/HCPCS: 80053; 80061; 84443; 85025 ==

== ENCOUNTER → 2023-11-13 09:33 | Outpatient (BNVA) | payer MEDICARE, OTHER, SELFPAY | PROVIDERS: PCP Nurse Practitioner; Visit Provider Clinical Nurse Specialist Adult Health | DX: R59.0 Localized enlarged lymph nodes (principal) | CPT/HCPCS: 87071; 87880 ==

== ENCOUNTER 2023-12-19 08:57 | Outpatient (CLI) | payer MEDICARE, OTHER, SELFPAY ==
--- NOTE | 2023-12-19 09:00 | MM_ITS ---
WS: [id number] BILATERAL 3D TOMOSYNTHESIS DIGITAL SCREENING MAMMOGRAPHY WITH CAD CLINICAL INFORMATION: Z12.31 - Encounter for screening mammogram for malignant ... HISTORY: Screening mammogram. No current complaints. COMPARISON: 2022 TECHNIQUE: Bilateral CC and MLO views. FINDINGS: Scattered fibroglandular densities bilaterally. No suspicious focal mass, asymmetry, calcifications, or architectural distortion. No evidence of malignancy. A few incidental punctate calcifications. MM/MM [facility] tomosynthesis [id number] IMPRESSION: DENSITY: There are scattered areas of fibroglandular density. BI-RADS: 2 - Benign. FOLLOW UP: 1 Year Follow-up Recommend return to annual screening mammography.
== END 2023-12-19 08:58 | disposition home or self-care (01) ==
PROVIDERS: PCP Nurse Practitioner; Visit Provider Nurse Practitioner
DX: Z12.31 Encounter for screening mammogram for malignant neoplasm of breast (principal); R92.323 Mammographic fibroglandular density, bilateral breasts; R92.1 Mammographic calcification found on diagnostic imaging of breast
CPT/HCPCS: 77063; 77067

== ENCOUNTER → 2024-03-12 15:08 | Outpatient (BNVA) | payer MEDICARE, OTHER, SELFPAY | PROVIDERS: PCP Nurse Practitioner; Visit Provider Nurse Practitioner | DX: I10 Essential (primary) hypertension (principal); E78.2 Mixed hyperlipidemia | CPT/HCPCS: 80053; 80061 ==

== ENCOUNTER 2024-06-13 12:20 | Outpatient (CLI) | payer MEDICARE, OTHER, SELFPAY ==
--- NOTE | 2024-06-13 13:00 | XR_ITS ---
WS: [id number] SCREENING DEXA SCAN [place] CLINICAL INFORMATION: Z78.0 - Asymptomatic menopausal state COMPARISON: None. FINDINGS: The L1-L4 bone mineral density measures 1.130 g/cm2. This corresponds to a T score score of -0.4 and Z score of 1.0. Left femoral neck bone mineral density measures 0.916 g/cm2. This corresponds to a T score of -0.7 and Z score of 0.4. Right femoral neck bone mineral density measures 0.917 g/cm2. This corresponds to a T score -0.7of and Z score of 0.4. Mean femoral neck bone mineral density measures 0.916 g/cm2. This corresponds to a T score of -0.7 and Z score of 0.4. XR/XR DEXA axial skeleton* [id number] IMPRESSION: Normal bone mineralization. Patient's FRAX calculated 10 year probability for major osteoporotic fracture i s 9.4% and osteoporotic hip fracture is 1.2%.
== END 2024-06-13 12:21 | disposition home or self-care (01) ==
LOC: RAD 12:21
PROVIDERS: PCP Nurse Practitioner; Visit Provider Nurse Practitioner
DX: Z78.0 Asymptomatic menopausal state (principal); Z12.11 Encounter for screening for malignant neoplasm of colon
CPT/HCPCS: 77080; 99204

== ENCOUNTER 2024-06-25 09:17 | Day surgery (SDC) | payer MEDICARE, OTHER, SELFPAY ==
[2024-06-25 09:48] VITALS: BP 156/76; PULSE 56; RESP 16; TEMP 36.9; O2SAT 99
[2024-06-25] MEDS: sodium chloride 0.9% 1,000 ML 15 ML IV (09:52)
--- NOTE | 2024-06-25 10:37 | ANES.PREANE2 ---
Pre-Anesthetic Assessment Height/Weight: Height 5 ft 1 in Weight 154 lb Temp Pulse Resp BP Pulse Ox O2 Del Method 98.4 F 56 L 16 156/76 99 Room Air 06/25/24 09:48 06/25/24 09:48 06/25/24 09:48 06/25/24 09:48 06/25/24 09:48 06/25/24 09:48 Preop Diagnosis: Screening colonoscopy Operation Date: 06/25/24 12:00 Proposed Procedures p Colonoscopy [id number] G0121 Z12.11(Not Applicable) - Skyler Mascorro MD Was Beta Hugo taken within 24 hours: N/A Was Clonidine taken within 24 hours: N/A Last intake: Intake Last Liquid Date 06/24/24 Last Liquid Time 23:00 Last Solid Date 06/23/24 Last Solid Time 18:00 Social No alcohol and No tobacco Exam alert, oriented x 3, clear to auscultation bilaterally and regular rate & rhythm Airway Submandibular: within normal limits Cervical ROM: within normal limits Mallampati: Class III Comments: Comments: Poor dentition, few bottom teeth. Denies any loose Anesthetic Plan ASA status: 2 Anesthesia: MAC Other: No prior issues with anesthesia Completed bowel prep History of hypertension on amlodipine and irbesartan Denies any pulmonary issues EKG showing sinus rhythm Patient had lab work in March, Plan for MAC anesthesia Medications/Allergies Home Medications ?Medication ?Instructions ?Recorded ?Confirmed ?Last Taken ?Type nitroglycerin 0.4 mg sublingual 0.4 mg sublingual Q5M PRN chest 03/24/22 06/24/24 Unknown Rx tablet pain #30 tabs amlodipine 5 mg tablet (Norvasc) 5 mg PO DAILY #30 tabs 06/04/24 06/24/24 06/25/24 Rx furosemide 20 mg tablet (Lasix) 20 mg PO QAM PRN edema #30 tabs 06/04/24 06/24/24 06/23/24 Rx irbesartan 300 mg tablet (Avapro) 300 mg PO DAILY #30 tabs 06/04/24 06/24/24 06/24/24 Rx metformin 500 mg tablet,extended 500 mg PO BID #60 tabs 06/04/24 06/24/24 06/24/24 Rx release 24 hr pravastatin 20 mg tablet 20 mg PO DAILY #30 tabs 06/04/24 06/24/24 06/24/24 Rx Allergies Allergy/AdvReac Type Severity Reaction Status Date / Time No Known Allergies Allergy Verified 06/24/24 09:01 Current Medications Generic Name Dose Route Start Last Admin Trade Name Benjyq PRN Reason Stop Dose Admin Sodium Chloride 1,000 mls @ 15 mls/hr 06/25/24 09:40 06/25/24 09:52 Sodium Chloride 0.9% IV 06/26/24 09:39 15 mls/hr .Q24H PRN Administration COLONOSCOPY FLUIDS PFSH Anesthesia Medical History Hyperlipidemia, mixed First degree AV block Anxiety Essential (primary) hypertension Surgical History Right carpal tunnel syndrome 12/24/20 History of left knee replacement August 2019 History of umbilical hernia repair History of hysterectomy with BSO Family History Brother Cancer Lung Father Family history of premature coronary artery disease Mother Dementia Other CAD (coronary artery disease) Stroke Social History Smoking and tobacco/nicotine status: never used tobacco/nicotine Second hand smoke exposure: No Alcohol intake: never Substance/Drug Use: never Adopted: No Caregiver/support person: No Lives independently: Yes Household members: spouse Housing: House Marital status: service: No Current occupational status: employed Current occupation: house Previous occupational history: house cleaning Pets and animals: Yes Pets & animals: dog(s) Do you think of yourself as: Straight/Heterosexual Current gender identity: Female Data Anesthesia Cardiac Studies: Sestamibi Stress Test (Cardiology) 08/19/20 Holter Monitor 08/15/22
--- NOTE | 2024-06-25 12:16 | W.PM.OPSUD ---
Surgery/Procedure H&P Update DATE OF PROCEDURE: June 25, 2024 DATE H&P PERFORMED: 06/13/24 H&P UPDATE INFORMATION: I have reviewed H&P completed within last 30 days, I have examined patient prior to procedure and No changes to prior documentation PREOP DIAGNOSIS: Screening colonoscopy PLANNED PROCEDURE: Operation Date: 06/25/24 12:00 Proposed Procedures p Colonoscopy [id number] G0121 Z12.11(Not Applicable) - Skyler Mascorro MD
[2024-06-25 12:37] VITALS: BP 126/60; PULSE 56; RESP 17; TEMP 36.2; O2SAT 100
[2024-06-25 12:51] VITALS: BP 100/61; PULSE 53; RESP 17; O2SAT 96
--- NOTE | 2024-06-25 13:18 | ANE.PACU2 ---
Inpatient post-anesthesia follow up: Airway intact: Yes Vital signs: Temperature 97.2 F Pulse Rate 53 Respiratory Rate 17 Blood Pressure 100/61 Pulse Oximetry 96 Oxygen Delivery Me thod Room Air Oxygen Flow Rate Fraction of Inspir ed Oxygen Hydration adequate: Yes Nausea and vomiting: No Pain level: 1 Mental status: Baseline
== END 2024-06-25 13:18 | disposition home or self-care (01) ==
PROVIDERS: PCP Nurse Practitioner; Visit Provider Student in an Organized Health Care Education/Training Program
PROC: 0DJD8ZZ Inspection of Lower Intestinal Tract, Via Natural or Artificial Opening Endoscopic (ICD-10-PCS; CPT 45378; principal; 2024-06-25 12:00)
DX: Z12.11 Encounter for screening for malignant neoplasm of colon (principal); I10 Essential (primary) hypertension; E78.2 Mixed hyperlipidemia; Z79.899 Other long term (current) drug therapy; Z79.84 Long term (current) use of oral hypoglycemic drugs
CPT/HCPCS: G0121; J2704; J7030; J9999

== ENCOUNTER → 2024-10-17 08:45 | Outpatient (BNVA) | payer MEDICARE, OTHER, SELFPAY | PROVIDERS: PCP Nurse Practitioner; Visit Provider Nurse Practitioner | DX: E78.2 Mixed hyperlipidemia (principal); E55.9 Vitamin D deficiency, unspecified | CPT/HCPCS: 80053; 80061; 82306; 85025 ==

== ENCOUNTER 2024-10-25 15:25 | Outpatient (CLI) | payer MEDICARE, OTHER, SELFPAY ==
--- NOTE | 2024-10-25 15:36 | XR_ITS ---
WS: [id number] XR thoracic spine 3V* [id number] REASON FOR EXAM: M54.9 - Dorsalgia, unspecified FINDINGS: Mild thoracic levoscoliosis. Mild kyphosis. No significant compression deformity or focal lesion of the thoracic vertebrae. Mild narrowing of the disc spaces with mild endplate sclerosis and osteophytosis in the mid and lower thoracic spine. XR/XR thoracic spine 3V* [id number] IMPRESSION: Mild scoliosis, kyphosis, and degenerative spondylosis as above.
== END 2024-10-25 15:26 | disposition home or self-care (01) ==
LOC: RAD 15:28
PROVIDERS: PCP Nurse Practitioner; Visit Provider Nurse Practitioner
DX: M47.894 Other spondylosis, thoracic region (principal); M41.84 Other forms of scoliosis, thoracic region; M54.9 Dorsalgia, unspecified; G89.29 Other chronic pain
CPT/HCPCS: 72072

== ENCOUNTER 2024-12-25 09:18 | Outpatient (CLI) | payer MEDICARE, OTHER, SELFPAY ==
--- NOTE | 2024-12-25 09:20 | MM_ITS ---
WS: [id number] BILATERAL SCREENING DIGITAL TOMOSYNTHESIS MAMMOGRAM WITH CAD HISTORY: Z12.31 - Encounter for screening mammogram for malignant ... COMPARISON: 12/19/2023, 11/11/2022 Bilateral CC and MLO views with tomosynthesis and synthetic mammography submitted. Computer aided detection analyzed. Breast composition: There are scattered areas of fibroglandular density. No suspicious masses, microcalcifications or architectural distortion. Benign calcifications in each breast. MM/MM scr tomosynthesis [id number] IMPRESSION: BI-RADS: 2 - Benign. FOLLOW UP: 1 Year Follow-up
== END 2024-12-25 09:19 | disposition home or self-care (01) ==
LOC: MOBLMAM 09:19
PROVIDERS: PCP Nurse Practitioner; Visit Provider Nurse Practitioner
DX: Z12.31 Encounter for screening mammogram for malignant neoplasm of breast (principal); R92.323 Mammographic fibroglandular density, bilateral breasts; R92.1 Mammographic calcification found on diagnostic imaging of breast
CPT/HCPCS: 77063; 77067